=== PATIENT | male | born 2005 | race Hispanic/Latino ===

== ENCOUNTER 2025-06-27 13:12 | Emergency (ER) | payer OTHER ==
[~2025-06-27] VITALS: Ht 175.3 cm; Wt 98.9 kg
[2025-06-27 13:29] VITALS: PULSE 66; RESP 18; TEMP 97.9; O2SAT 98
[2025-06-27] MEDS ORDERED: ONDANSETRON ODT4 MG PO (13:36)
== END 2025-06-27 13:46 | disposition home or self-care (01) ==
LOC: FSED 13:17
DX: R11.2 Nausea with vomiting, unspecified (principal); R10.11 Right upper quadrant pain; J45.909 Unspecified asthma, uncomplicated; F17.210 Nicotine dependence, cigarettes, uncomplicated
CPT/HCPCS: 99283